=== PATIENT | male | born 1990 | race Caucasian/White ===

== ENCOUNTER 2024-02-27 15:32 | Emergency (ER) | payer OTHER ==
[~2024-02-27] VITALS: Ht 175.3 cm; Wt 108.9 kg
[2024-02-27 15:43] VITALS: BP 145/93; PULSE 93; RESP 18; TEMP 98.1; O2SAT 97
[2024-02-27] MEDS: BACITRACIN OINT 500 UNITS/GM PKT TP ONE (16:31)
[2024-02-27] MEDS: ACETAMINOPHEN 325 MG TAB PO ONE (16:31)
[2024-02-27] MEDS ORDERED: NAPR-1704 PO (18:17)
[2024-02-27 18:30] VITALS: BP 156/92; PULSE 113; RESP 18; TEMP 98.1; O2SAT 96
== END 2024-02-27 18:30 | disposition home or self-care (01) ==
LOC: MED 15:32
DX: S09.90XA Unspecified injury of head, initial encounter (principal); S50.811A Abrasion of right forearm, initial encounter; I10 Essential (primary) hypertension; Z98.890 Other specified postprocedural states; Z85.038 Personal history of other malignant neoplasm of large intestine; V89.2XXA Person injured in unspecified motor-vehicle accident, traffic, initial encounter; Y93.89 Activity, other specified; Y92.410 Unspecified street and highway as the place of occurrence of the external cause; Y99.8 Other external cause status
CPT/HCPCS: 70450; 99284